=== PATIENT | male | born 1945 | race Caucasian/White ===

== ENCOUNTER 2021-01-16 17:04 | Outpatient (REF) | payer MEDICARE, SELFPAY ==
[2021-01-16 17:59] LABS: Glucose Urine UA NEG (NEG); Leukocyte Esterase Urine NEG (NEG); Nitrite Urine NEG (NEG); Specific Gravity - Urine >= 1.030 (1.005-1.025); Urine Blood NEG (NEG); Urine Ketones NEG (NEG); Urine Protein NEG (NEG-TRACE)
[2021-01-16 18:06] LABS: Hematocrit 49.1 % (42-52); Hemoglobin 16.5 g/dl (14.0-18.0); Mean Corpuscular HGB Conc 33.6 g/dl (31.0-36.0); Mean Corpuscular Hemoglobin 32.8 pg (27.0-33.0); Mean Corpuscular Volume 97.6 fL (80-98); Platelet Count 295 X10*3/uL (160-400); Red Blood Count 5.03 X10*6/uL (4.60-5.80); Red Cell Distribution Width 12.3 % (11.0-16.0); White Blood Count 6.8 X10*3/uL (4.8-10.8)
[2021-01-16 18:08] LABS: Appearance Urine CLEAR; Color Urine YELLOW
[2021-01-16 18:18] LABS: Alanine Aminotransferase 28 U/L (0-40); Albumin Level 4.1 g/dL (3.5-5.0); Alkaline Phosphatase 68 U/L (39-117); Anion Gap 10 (12-20); Aspartate Amino Transferase 20 U/L (5-37); Bilirubin Direct 0.2 mg/dL (0.0-0.5); Bilirubin Total 0.6 mg/dL (0.0-1.0); Blood Urea Nitrogen 18 mg/dL (9-16); Calcium 8.7 mg/dL (8.4-10.2); Carbon Dioxide 29 mmol/L (22-29); Chloride 106 mmol/L (96-108); Cholesterol 172 mg/dL; Estimated Glomerular Filt Rate > 60; Glucose Random 90 mg/dL (60-115); HDL Cholesterol 51 mg/dL; LDL Cholesterol Calculated 104 mg/dl; Potassium 4.2 mmol/L (3.3-5.1); Sodium 141 mmol/L (135-145); Total Protein 6.4 g/dL (6.5-8.0); Triglycerides 85 mg/dL
[2021-01-16 18:41] LABS: Thyroid Stimulating Hormone 1.62 uIU/mL (0.32-4.0)
== END 2021-01-16 17:05 | disposition home or self-care (01) ==
LOC: HO.LAB 17:04
PROVIDERS: PCP Internal Medicine; Visit Provider Internal Medicine
DX: I10 Essential (primary) hypertension (principal)
CPT/HCPCS: 36415; 80048; 80061; 80076; 81003; 84443; 85027

== ENCOUNTER 2021-08-07 14:42 | Outpatient (REF) | payer MEDICARE, SELFPAY ==
[2021-08-07 15:58] LABS: Alanine Aminotransferase 18 U/L (0-40); Albumin Level 4.2 g/dL (3.5-5.0); Alkaline Phosphatase 59 U/L (39-117); Anion Gap 13 (12-20); Aspartate Amino Transferase 21 U/L (5-37); Bilirubin Total 0.9 mg/dL (0.0-1.0); Blood Urea Nitrogen 12 mg/dL (9-16); Calcium 9.2 mg/dL (8.4-10.2); Carbon Dioxide 27 mmol/L (22-29); Chloride 108 mmol/L (96-108); Estimated Glomerular Filt Rate > 60; Glucose Fasting 86 mg/dL (60-99); Potassium 4.5 mmol/L (3.3-5.1); Sodium 143 mmol/L (135-145); Total Protein 6.6 g/dL (6.5-8.0)
== END 2021-08-07 14:43 | disposition home or self-care (01) ==
LOC: HO.LAB 14:42
PROVIDERS: PCP Internal Medicine; Visit Provider Nurse Practitioner Family
DX: Z13.1 Encounter for screening for diabetes mellitus (principal)
CPT/HCPCS: 36415; 80053

== ENCOUNTER 2021-09-27 15:21 | Outpatient (REF) | payer MEDICARE, SELFPAY ==
--- NOTE | ~2021-09-27 | XR_ITS ---
EXAMINATION: XR HAND, LEFT CLINICAL INFORMATION: Injury COMPARISON: None TECHNIQUE: Four views of the left hand. FINDINGS: As seen on the lateral radiograph, there is a mildly displaced intra-articular fracture of the volar proximal base of the middle phalanx, likely of the fifth digit. Mild narrowing of some of the interphalangeal joints. Carpal row alignment appears maintained. Mild ulnar negative variance. No abnormal soft tissue calcification. Normal bone mineralization. XR/XR hand LT min 3V IMPRESSION: Mildly displaced intra-articular fracture of the volar proximal base of the fifth middle phalanx. Please clinically correlate. Additional imaging, follow-up radiographs as clinically warranted. The report will be called to the ordering clinician by a [facility] Physician Metal Finisher.
== END 2021-09-27 15:22 | disposition home or self-care (01) ==
LOC: HO.XRAY 15:21
PROVIDERS: PCP Internal Medicine; Visit Provider Nurse Practitioner Acute Care
DX: S62.613A Displaced fracture of proximal phalanx of left middle finger, initial encounter for closed fracture (principal); X58.XXXA Exposure to other specified factors, initial encounter; Y93.9 Activity, unspecified; Y92.9 Unspecified place or not applicable; Y99.8 Other external cause status
CPT/HCPCS: 73130

== ENCOUNTER 2021-10-03 12:00 | Outpatient (REF) | payer MEDICARE, SELFPAY ==
--- NOTE | ~2021-10-03 | XR_ITS ---
EXAMINATION: XR HAND, LEFT CLINICAL INFORMATION: Left hand pain. COMPARISON: Left hand radiographs dated 09/27/2021. TECHNIQUE: PA view of the left hand as well as oblique and lateral views of the small finger. FINDINGS: Redemonstration of an oblique fracture through the ventral base of the 5th middle phalanx with a resultant fracture gap measuring up to 0.3 cm. Findings are in similar anatomic alignment when compared to the prior radiographs. Minimal new bone/callus formation. No acute fracture or dislocation. XR/XR hand LT min 3V IMPRESSION: Fracture at the ventral base of the 5th middle phalanx in unchanged anatomic alignment with minimal new bone/callus formation.
== END 2021-10-03 12:01 | disposition home or self-care (01) ==
LOC: HO.HOSX 12:00
PROVIDERS: Visit Provider Orthopaedic Surgery
DX: M79.642 Pain in left hand (principal); S62.627A Displaced fracture of middle phalanx of left little finger, initial encounter for closed fracture; W01.198A Fall on same level from slipping, tripping and stumbling with subsequent striking against other object, initial encounter; Y93.89 Activity, other specified; Y92.009 Unspecified place in unspecified non-institutional (private) residence as the place of occurrence of the external cause; Y99.8 Other external cause status; I10 Essential (primary) hypertension
CPT/HCPCS: 73130; 99202

== ENCOUNTER 2021-11-07 11:52 | Outpatient (REF) | payer MEDICARE, SELFPAY ==
--- NOTE | ~2021-11-07 | XR_ITS ---
EXAMINATION: XR HAND, LEFT CLINICAL INFORMATION: Follow up pain. COMPARISON: 09/27/2021 TECHNIQUE: PA, lateral, and oblique views of the left hand. FINDINGS: Once again fracture of the middle phalanx 5th digit at the level of the PIP joint is noted. No significant change in fracture fragment position. Fracture lines are still well visible. Otherwise there is no acute finding. No bony erosion or osteopenia. XR/XR hand LT min 3V IMPRESSION: Once again fracture felt to be present at the level of the PIP joint 5th digit. Fracture lines are still well visible. No significant increased migration of the fracture fragments.
== END 2021-11-07 11:53 | disposition home or self-care (01) ==
LOC: HO.HOSX 11:52
PROVIDERS: Visit Provider Orthopaedic Surgery
DX: S62.627D Displaced fracture of middle phalanx of left little finger, subsequent encounter for fracture with routine healing (principal)
CPT/HCPCS: 73130; 99212

== ENCOUNTER 2022-03-29 15:25 | Outpatient (REF) | payer MEDICARE, SELFPAY ==
[2022-03-29 16:03] LABS: Hematocrit 48.9 % (42.0-52.0); Hemoglobin 16.3 g/dl (14.0-18.0); Mean Corpuscular HGB Conc 33.3 g/dl (31.0-36.0); Mean Corpuscular Hemoglobin 32.6 pg (27.0-33.0); Mean Corpuscular Volume 97.8 fL (80.0-98.0); Mean Platelet Volume 10.4 fL (9.4-12.4); Platelet Count 306 X10*3/uL (160-400); Red Cell Distribution Width 12.4 % (11.0-16.0); White Blood Count 5.8 X10*3/uL (4.8-10.8)
[2022-03-29 16:34] LABS: Alanine Aminotransferase 17 U/L (0-40); Albumin Level 4.1 g/dL (3.5-5.0); Alkaline Phosphatase 78 U/L (39-117); Anion Gap 13 (12-20); Aspartate Amino Transferase 17 U/L (5-37); Bilirubin Direct 0.3 mg/dL (0.0-0.5); Bilirubin Total 0.7 mg/dL (0.0-1.0); Blood Urea Nitrogen 14 mg/dL (9-16); Calcium 8.9 mg/dL (8.4-10.2); Carbon Dioxide 24 mmol/L (22-29); Chloride 110 mmol/L (96-108); Cholesterol 171 mg/dL; Estimated Glomerular Filt Rate > 60; Glucose Random 93 mg/dL (60-115); HDL Cholesterol 48 mg/dL; LDL Cholesterol Calculated 103 mg/dl; Potassium 4.4 mmol/L (3.3-5.1); Sodium 143 mmol/L (135-145); Total Protein 6.5 g/dL (6.5-8.0); Triglycerides 103 mg/dL
[2022-03-29 16:55] LABS: Thyroid Stimulating Hormone 1.87 uIU/mL (0.32-4.0)
== END 2022-03-29 15:26 | disposition home or self-care (01) ==
LOC: HO.LAB 15:25
PROVIDERS: PCP Internal Medicine; Visit Provider Internal Medicine
DX: I10 Essential (primary) hypertension (principal)
CPT/HCPCS: 36415; 80048; 80061; 80076; 84443; 85027

== ENCOUNTER 2022-04-05 13:42 | Outpatient (REF) | payer MEDICARE, SELFPAY ==
[2022-04-05 14:52] LABS: Cholesterol 160 mg/dL; HDL Cholesterol 50 mg/dL; LDL Cholesterol Calculated 92 mg/dl; Triglycerides 92 mg/dL
== END 2022-04-05 13:43 | disposition home or self-care (01) ==
LOC: HO.LAB 13:42
PROVIDERS: Visit Provider Internal Medicine
DX: I10 Essential (primary) hypertension (principal)
CPT/HCPCS: 36415; 80061

== ENCOUNTER 2022-09-27 15:47 | Outpatient (REF) | payer MEDICARE, SELFPAY ==
[2022-09-27 17:28] LABS: Hematocrit 50.4 % (42.0-52.0); Hemoglobin 16.8 g/dl (14.0-18.0); Mean Corpuscular HGB Conc 33.3 g/dl (31.0-36.0); Mean Corpuscular Hemoglobin 32.3 pg (27.0-33.0); Mean Corpuscular Volume 96.9 fL (80.0-98.0); Mean Platelet Volume 9.7 fL (9.4-12.4); Platelet Count 298 X10*3/uL (160-400); Red Cell Distribution Width 11.9 % (11.0-16.0); White Blood Count 6.3 X10*3/uL (4.8-10.8)
[2022-09-27 17:42] LABS: Alanine Aminotransferase 18 U/L (0-40); Albumin Level 4.1 g/dL (3.5-5.0); Alkaline Phosphatase 68 U/L (39-117); Anion Gap 12 (12-20); Aspartate Amino Transferase 20 U/L (5-37); Bilirubin Direct 0.3 mg/dL (0.0-0.5); Bilirubin Total 0.9 mg/dL (0.0-1.0); Blood Urea Nitrogen 14 mg/dL (9-16); Calcium 9.2 mg/dL (8.4-10.2); Carbon Dioxide 26 mmol/L (22-29); Chloride 106 mmol/L (96-108); Cholesterol 170 mg/dL; Estimated Glomerular Filt Rate > 60; Glucose Random 94 mg/dL (60-115); HDL Cholesterol 50 mg/dL; LDL Cholesterol Calculated 102 mg/dl; Potassium 4.4 mmol/L (3.3-5.1); Sodium 140 mmol/L (135-145); Total Protein 6.4 g/dL (6.5-8.0); Triglycerides 92 mg/dL
[2022-09-27 18:04] LABS: Appearance Urine Clear; Color Urine Yellow; Glucose Urine UA Negative (Negative); Leukocyte Esterase Urine Trace (Negative); Nitrite Urine Negative (Negative); Urine Blood Negative (Negative); Urine Ketones Negative (Negative); Urine Protein Negative (Neg-Trace)
[2022-09-27 18:05] LABS: UMIC TRIGGER UA YES
[2022-09-27 18:10] LABS: Bacteria Urine None Seen (None Seen); Hyaline Casts Urine 0-2 /LPF (0-2); RBC Urine 0-2 /HPF (0-2); Squamous Epithelial Cell Urine 0-2 /HPF (0-2)
== END 2022-09-27 15:48 | disposition home or self-care (01) ==
LOC: HO.LAB 15:47
PROVIDERS: PCP Internal Medicine; Visit Provider Internal Medicine
DX: I10 Essential (primary) hypertension (principal)
CPT/HCPCS: 36415; 80048; 80061; 80076; 81001; 85027

== ENCOUNTER 2023-04-18 15:30 | Outpatient (REF) | payer MEDICARE, SELFPAY | END 2023-04-18 15:31 | disposition home or self-care (01) | LOC: HO.LAB 15:30 | PROVIDERS: PCP Internal Medicine; Visit Provider Internal Medicine | DX: I10 Essential (primary) hypertension (principal) | CPT/HCPCS: 36415; 80048; 80061; 80076; 81003; 84443; 85027 ==

== ENCOUNTER 2023-08-27 14:53 | Outpatient (AMB) | payer MEDICARE, SELFPAY ==
[2023-08-27 14:55] VITALS: BP 112/68; PULSE 78; O2SAT 99; BMI 31.8
--- NOTE | 2023-08-27 14:55 | A.OFFVIS_ITS ---
Intake Vital Signs 08/27/23 14:55 Height 5 ft 6 in Weight 197 lb 0.2 oz BMI 31.8 BP 112/68 Blood Pressure Location Lt brachial Position Sitting Pulse 78 Pulse Source Pulse Oximeter Pulse Oximetry (%) 99 Oxygen Delivery Method Room Air Intake Visit Reasons: [facility] G0439 Rubber Goods Inspector Tester Required: No Allergies No Known Allergies [No Known Allergies*] Allergy (Verified 08/27/23 15:15) Medication List - Last Reconciled 08/27/23 by CHIP Lord aspirin 81 mg PO DAILY metoprolol succinate ER 50 mg PO DAILY HPI SWV G0439 HPI Details Patient is a 77-year-old male who presents today for subsequent wellness visit. Patient of Dr. Restrepo. Patient is up-to-date with his health preventative screenings and immunizations. [place] of care was reviewed with the patient and he was provided with a screening schedule. Patient has a healthcare proxy in place and he will provide office with a copy, he was provided with a MOLST form. [facility] Medical History Fracture of middle phalanx of left little finger Proximal phalanx fracture of finger Fall Injury of left hand Benign essential HTN Surgical History History of colonoscopy History of tonsillectomy Family History Father No problems noted. Mother No problems noted. Social History Housing: House Alcohol intake: former Patient Tobacco Use Status: Never used Tobacco e-Cigarette/Vaping Use: Never Used Second Hand Smoke Exposure: No service: No Current occupational status: retired Cognitive needs: No Hearing needs: No Vision needs: Yes (Glasses) Questionnaire Medicare Wellness Checkup [age] What gender do you identify with?: male During the past 4 weeks, how much have you been bothered by emotional problems such as feeling anxious, depressed, irritable, sad or downhearted, and blue?: slightly During the past 4 weeks, has your physical & emotional health limited your social activities with family, friends, neighbors, or groups?: not at all During the past 4 weeks, how much bodily pain have you generally had?: very mild pain During the past 4 weeks, was someone available to help you if you needed & wanted help?: yes, some During the past 4 weeks, what was the hardest physical activity you could do for at least 2 minutes?: moderate Can you get to places out of walking distance without help? (For eg., can you travel alone on buses, taxis or drive your car?): Yes Can you go shopping for groceries or clothes without someone's help?: Yes Can you prepare your own meals?: Yes Can you do your housework without help?: Yes Because of any health problems, do you need the help of another person with your personal care needs such as eating, bathing, dressing or getting around the house?: No Can you handle your own money without help?: Yes During the past 4 weeks, how would you rate your health in general?: excellent During the past 4 weeks how have things been going for you?: pretty well Are you having difficulties driving your car?: no Do you always fasten your seat belt when you are in a car?: yes, usually During past 4 weeks, have you been bothered by the following: never: Falling or dizzy when standing up, Sexual problems?, Trouble eating well?, Teeth or denture problems?, Problems using the telephone? and Tiredness or fatigue? Have you fallen 2 or more times in the past year?: No Are you afraid of falling?: No Are you a smoker?: no During the past 4 weeks, how many drinks of wine, beer, or other alcoholic beverages did you have?: no alcohol at all Do you exercise for about 20 minutes 3 or more times a week?: yes, most of the time Have you been given information to help with the following?: no: Hazards in your house that might hurt you? and no: Keeping track of your medications? How often do you have trouble taking medicines the way you have been told to take them?: I always take medicine as prescribed How confident are you that you can control & manage most of your health problems?: very confident What is your race?: White Mini Mental State Exam (MMSE) Orientation What is the (year) (season) (date) (day) (month)?: year, season, date, day and month Score Score: 5 Activity of Daily Living Bathing - sponge bath, tub bath or shower: receives no assistance (gets in/out by self, if usual bathing means Dressing - getting clothes from closets & drawers, including inner/outer garments & fasteners.: gets clothes & gets completely dressed without help Toileting - going to the 'toilet room' for urine/bowel elimination & cleaning self/arranging clothes: goes to toilet room, cleans self, arranges clothes without help Transfer: moves in & out of bed and chair without help (may use support object) Continence: controls urination/bowel movements completely by self Feeding: feeds self without help Total Score: 0 Information obtained from: patient Using telephone: independent Traveling: independent Shopping: independent Preparing meals: independent Housework: independent Taking medicine: independent Managing money: independent PHQ-9 Over the last 2 weeks, how often have you been bothered by any of the following problems? 1. Little interest or pleasure in doing things: not at all 2. Feeling down, depressed, or hopeless: not at all 3. Trouble falling or staying asleep, or sleeping too much: not at all 4. Feeling tired or having little energy: not at all 5. Poor appetite or overeating: not at all 6. Feeling bad about yourself - or that you are a failure or have let yourself or your family down: not at all 7. Trouble concentrating on things, such as reading the newspaper or watching television: not at all 8. Moving or speaking so slowly that other people could have noticed. Or the opposite - being so fidgety or restless that you have been moving around a lot more than usual: not at all 9. Thoughts that you would be better off or of hurting yourself in some way: not at all Total score: 0 Depression Screening Interpretation: Negative Depression Screening Done: Yes 42257 - PHQ-9 Billing: Yes Source: Developed by Drs. Jay Molina, Jessa Rhodes, Pravin Mclain and colleagues, with an educational wing from [employer]. Physical Exam Vital Signs: Last Vital Signs Pulse 78 08/27/23 14:55 BP 112/68 08/27/23 14:55 Pulse Ox 99 08/27/23 14:55 Oxygen Delivery Method Room Air 08/27/23 14:55 BMI result Body Mass Index 31.8 Const General: cooperative and no acute distress Orientation/consciousness: patient oriented x3 HEENT Other: Whisper test: fail Neuro Other: Balance: Normal Get up and walk: able to Romberg: negative Tandem gait: unable to General: patient oriented x3 Office Procedures Flu Questionnaire Does the patient have a severe egg allergy?: No Does the patient have severe life threatening allergies?: No Does the patient have a fever or illness today?: No Has the patient ever had Guillain-[place] Syndrome?: No Has the patient ever had any past reaction to a flu shot?: No Immunizations flu vacc [id number] 6mos up(PF) 60 mcg(15 mcgx4)/0.5 mL IM syringe Performing Provider: CHIP Lord [facility] Administered by: CARLO Willson on 08/27/23 15:27 Dose Route Admin Location Dispensed Lot Number Expiration Date [facility] Secretary 0.5 mL IM Left Deltoid 0.5 mL [id number] 04/12/24 [id number] [employer] VIS Given Date VIS Provided VIS Publication Date 08/27/23 Single Vaccine 21 Eligibility Eligibility Date Funding Source Not [facility] Eligible 08/27/23 Private Assessment & Plan Assessment & Plan (1) Adult general medical exam: Code(s): Z00.00 - Encounter for general adult medical examination without abnormal findings (2) Benign essential HTN: Code(s): I10 - Essential (primary) hypertension Plan: Continue current treatment. Reinforced low-sodium diet and exercise as tolerated. (3) Obesity (BMI 30.0-34.9): Code(s): E66.9 - Obesity, unspecified Plan: Healthy food choices and exercise as tolerated. Orders: Orders Influenza [id number] Immunization Today Z23 - Encounter for immunization Quality Reporting (2019) Depression/Bipolar (159/160/161/177) PHQ-9: Total score: 0 Coding Level of Care Code Medicare Subsequent (G0439) Diagnoses Adult general medical exam Z00.00 Benign essential HTN I10 Obesity (BMI 30.0-34.9) E66.9 CPT Codes Advance Care Planning - Time spent: 1-15 minutes, not on file ([id number]) Advance Care Planning Advance Care Planning discussion: Exists, not on file Date of discussion: 08/27/23 Who was present: pt and head of advertising Forms completed: None Time spent: 1-15 minutes, not on file Actual minutes spent: 2 Did not discuss due to Cultural/Spiritual beliefs: No
== END 2023-08-27 15:30 | disposition home or self-care (01) ==
PROVIDERS: PCP Internal Medicine; Visit Provider Nurse Practitioner Family
DX: Z00.00 Encounter for general adult medical examination without abnormal findings (principal); I10 Essential (primary) hypertension; E66.9 Obesity, unspecified; Z23 Encounter for immunization; Z68.31 Body mass index [BMI] 31.0-31.9, adult
CPT/HCPCS: 1124F; 90471; 90686; G0439

== ENCOUNTER 2023-10-10 14:52 | Outpatient (AMB) | payer MEDICARE, SELFPAY ==
--- NOTE | 2023-10-10 14:56 | A.OFFPC_ITS ---
Vital Signs 10/10/23 14:59 Height 5 ft 6 in Weight 199 lb 4 oz BMI 32.2 BP 110/66 Blood Pressure Location Lt brachial Position Sitting Pulse 69 Pulse Source Pulse Oximeter Pulse Oximetry (%) 97 Oxygen Delivery Method Room Air Intake Visit Reasons: 6 Month F/Up Intake Note: Patient is here to follow up on HTN. Manager Medical Device Required: No Assistant Men'S Lacrosse Coach: Not Required per policy Accompanied by: Self / Same As Patient Allergies No Known Allergies [No Known Allergies*] Allergy (Verified 10/22/23 05:17) Medication List - Last Reconciled 10/22/23 by Jr Restrepo MD aspirin 81 mg PO DAILY metoprolol succinate ER 50 mg PO DAILY Tobacco use date assessed: 10/10/23 Fall risk assessment: No Falls in past year Last assessed Fall Risk: 10/10/23 Dental Screening Dental Screen Date: 10/10/23 Did you have a dental visit in the last 12 months?: Yes Did you have a dental problem in the last 6 months where you did not have access to dental care?: No Was dental information given to patient?: Patient has dentist HPI 6 Month F/Up HPI Details 78-year-old male presents to the office to discuss his chronic medical conditions. Patient continues to be active and able to do all activities of daily living. Continues to drive and travel. Compliant with medications. Reporting no side effects. [facility] Medical History Fracture of middle phalanx of left little finger Proximal phalanx fracture of finger Fall Injury of left hand Benign essential HTN Surgical History History of colonoscopy History of tonsillectomy Family History Father No problems noted. Mother No problems noted. Social History Housing: House Alcohol intake: former Patient Tobacco Use Status: Former Tobacco user (30 Years) Quit Date: 30 years e-Cigarette/Vaping Use: Never Used Second Hand Smoke Exposure: No service: No Current occupational status: retired Cognitive needs: No Hearing needs: No Vision needs: Yes (Glasses) Questionnaire Thrive Questionnaire Date Thrive assessed: 04/04/23 RUBEN-7 AMB Questionnaire RUBEN-7 Date RUBEN - 7 assessed: 04/04/23 Source: Developed by Drs. Jay Molina, Jessa Rhodes, Pravin Mclain and colleagues, with an educational wing from [employer]. Physical exam (Primary Care) Vital Signs: Last Vital Signs Pulse 69 10/10/23 14:59 BP 110/66 10/10/23 14:59 Pulse Ox 97 10/10/23 14:59 Oxygen Delivery Method Room Air 10/10/23 14:59 BMI result Body Mass Index 32.2 Tobacco/Smoking Status: Tobacco use Status Tobacco use date assessed 10/10/23 10/10/23 15:04 Patient Tobacco Use Status Former Tobacco user (30 10/10/23 15:04 Years) e-Cigarette/Vaping Use Never Used 10/10/23 15:04 Thrive Assessment: Date of Thrive Assessment Date Thrive assessed 04/04/23 10/10/23 15:04 Const General: cooperative and healthy appearing Nutritional Appearance: well nourished Orientation/consciousness: patient oriented x3 Limitations: no limitations HENMT Head: Yes normal to inspection Eyes General: appearance normal, both eyes and all related structures Neck Neck: Yes normal visual inspection Chest Chest palpation & inspection: normal palpation of entire chest wall Resp Effort & Inspection: normal respiratory effort Neuro General: patient oriented x3 Assessment and Plan Assessment & Plan (1) Benign essential HTN: Code(s): I10 - Essential (primary) hypertension Plan: Blood work reviewed. Counseling on the importance of diet and exercise done. Counseling time 20 minutes. Continue medications at same dosage. Medications: Refilled metoprolol succinate ER 50 mg PO DAILY 90 tabs 1RF Coding Level of Care Code Est Pt Level 4 (52568) Diagnoses Benign essential HTN I10
[2023-10-10 14:59] VITALS: BP 110/66; PULSE 69; O2SAT 97; BMI 32.2
== END 2023-10-10 15:31 | disposition home or self-care (01) ==
PROVIDERS: PCP Internal Medicine; Visit Provider Internal Medicine
DX: I10 Essential (primary) hypertension (principal)
CPT/HCPCS: 99214

== ENCOUNTER 2024-04-15 14:28 | Outpatient (AMB) | payer MEDICARE, SELFPAY ==
--- NOTE | 2024-04-15 14:33 | MHC.PC.OV ---
Vital Signs 04/15/24 14:35 Height 5 ft 6 in Weight 200 lb 4 oz BMI 32.3 BP 100/62 Blood Pressure Location Lt brachial Position Sitting Pulse 81 Pulse Source Pulse Oximeter Pulse Oximetry (%) 98 Oxygen Delivery Method Room Air Intake Visit Reasons: 6 month f/u Intake Note: Patient is here to follow up on HTN. Computer Forensic Specialist Required: No Dent Remover: Not Required per policy Accompanied by: Self / Same As Patient Allergies No Known Allergies [No Known Allergies*] Allergy (Verified 04/15/24 15:13) Medication List - Last Reconciled 04/15/24 by Jr Restrepo MD aspirin 81 mg PO DAILY metoprolol succinate ER 50 mg PO DAILY Tobacco use date assessed: 04/15/24 Fall risk assessment: No Falls in past year Last assessed Fall Risk: 04/15/24 Dental Screening Dental Screen Date: 04/15/24 Did you have a dental visit in the last 12 months?: Yes Did you have a dental problem in the last 6 months where you did not have access to dental care?: No Was dental information given to patient?: Patient has dentist HPI 6 month f/u HPI Details 78-year-old male presents to the office to discuss his chronic medical conditions. Patient is compliant with medications and reporting no side effects. Able to function and do all activities of daily living. Patient continues to drive, able to drive at night. He is independent and able to take care of his finances. Reports no symptoms of urinary incontinence or hesitancy. [facility] Medical History Fracture of middle phalanx of left little finger Proximal phalanx fracture of finger Fall Injury of left hand Benign essential HTN Surgical History History of colonoscopy History of tonsillectomy Family History Father No problems noted. Mother No problems noted. Social History Housing: House Alcohol intake: former Patient Tobacco Use Status: Former Tobacco user (30 Years) e-Cigarette/Vaping Use: Never Used Second Hand Smoke Exposure: No service: No Current occupational status: retired Cognitive needs: No Hearing needs: No Vision needs: Yes (Glasses) Questionnaire PHQ-9 Over the last 2 weeks, how often have you been bothered by any of the following problems? 1. Little interest or pleasure in doing things: not at all 2. Feeling down, depressed, or hopeless: not at all 3. Trouble falling or staying asleep, or sleeping too much: not at all 4. Feeling tired or having little energy: not at all 5. Poor appetite or overeating: not at all 6. Feeling bad about yourself - or that you are a failure or have let yourself or your family down: not at all 7. Trouble concentrating on things, such as reading the newspaper or watching television: not at all 8. Moving or speaking so slowly that other people could have noticed. Or the opposite - being so fidgety or restless that you have been moving around a lot more than usual: not at all 9. Thoughts that you would be better off or of hurting yourself in some way: not at all Total score: 0 Depression Screening Interpretation: Negative Depression Screening Done: Yes Source: Developed by Drs. Jay Molina, Jessa Rhodes, Pravin Mclain and colleagues, with an educational wing from [employer]. Thrive Questionnaire Date Thrive assessed: 04/15/24 I am a: Patient What is your living situation today?: I have a steady place to live Within the past 12 months, did the food you bought not last and you didn't have the money to get more?: Never true Within the past 12 months, did you worry whether your food would run out before you got money to buy more?: Never true Do you have trouble paying for medicines?: No Do you have trouble getting transportation to medical appointments?: No Do you have trouble paying your heating and electricity bill?: No Do you have trouble taking care of your child, family member or friend?: No Do you have trouble with day-to-day activities such as bathing, preparing meals, shopping, managing finances, etc.?: No Are you currently unemployed and looking for a job?: No Are you interested in more education?: No Currently or been in a relationship where the following occur: No concerns reported THRIVE Score: 0 AUDIT C Alcohol Use Questionnaire (AUDIT-C) 1. How often do you have a drink containing alcohol?: Never Total Score: 0 RUBEN-7 AMB Questionnaire RUBEN-7 Date RUBEN - 7 assessed: 04/15/24 Feeling nervous, anxious, or on edge: 0 = Not at all Not being able to stop or control worryin = Not at all Worrying too much about different things: 0 = Not at all Trouble relaxin = Not at all Being so restless that it is hard to sit still: 0 = Not at all Becoming easily annoyed or irritable: 0 = Not at all Feeling afraid as if something awful might happen: 0 = Not at all Total RUBEN-7 score (0-4 normal; 5-9 mild; 10-14 moderate; 15-21 severe): 0 Source: Developed by Drs. Jay Molina, Jessa Rhodes, Pravin Mclain and colleagues, with an educational wing from [employer]. Physical exam (Primary Care) Vital Signs: Last Vital Signs Pulse 81 04/15/24 14:35 BP 100/62 04/15/24 14:35 Pulse Ox 98 04/15/24 14:35 Oxygen Delivery Method Room Air 04/15/24 14:35 BMI result Body Mass Index 32.3 BMI Assessment/Plan discussion: High BMI High, discussed plan: lifestyle, weight reduction and dietary Tobacco/Smoking Status: Tobacco use Status Tobacco use date assessed 04/15/24 04/15/24 14:39 Patient Tobacco Use Status Former Tobacco user (30 04/15/24 14:39 Years) e-Cigarette/Vaping Use Never Used 04/15/24 14:39 PHQ-9: PHQ-9 Score PHQ-9: Total score 0 04/15/24 14:39 Depression Screening Interpretation: Negative Thrive Assessment: Date of Thrive Assessment Date Thrive assessed 04/15/24 04/15/24 14:39 Currently or been in a relationship where the following occur: No concerns reported Const General: cooperative and healthy appearing Nutritional Appearance: well nourished Orientation/consciousness: patient oriented x3 Limitations: no limitations HENMT Head: Yes normal to inspection Eyes General: appearance normal, both eyes and all related structures Neck Neck: Yes normal visual inspection Chest Chest palpation & inspection: normal palpation of entire chest wall Resp Effort & Inspection: normal respiratory effort Neuro General: patient oriented x3 Assessment and Plan Assessment & Plan (1) Benign essential HTN: Code(s): I10 - Essential (primary) hypertension Plan: Blood pressure is in range. Continue medications at same dosage. Orders: Orders Basic Metabolic Panel Today I10 - Essential (primary) hypertension Complete Blood Count no Diff Today I10 - Essential (primary) hypertension Lipid Panel Today I10 - Essential (primary) hypertension Liver Panel Today I10 - Essential (primary) hypertension Thyroid Stimulating Hormone Today I10 - Essential (primary) hypertension UA and rflx microscopic Today I10 - Essential (primary) hypertension Coding Level of Care Code Est Pt Level 4 (65790) Complex EM visit Add On G2211 Diagnoses Benign essential HTN I10
[2024-04-15 14:35] VITALS: BP 100/62; PULSE 81; O2SAT 98; BMI 32.3
== END 2024-04-15 15:09 | disposition home or self-care (01) ==
PROVIDERS: PCP Internal Medicine; Visit Provider Internal Medicine
DX: I10 Essential (primary) hypertension (principal)
CPT/HCPCS: 99214; G2211

== ENCOUNTER 2024-04-27 15:32 | Outpatient (REF) | payer MEDICARE, SELFPAY ==
[2024-04-27 16:31] LABS: Hematocrit 49.6 % (42.0-52.0); Hemoglobin 16.7 g/dl (14.0-18.0); Mean Corpuscular HGB Conc 33.7 g/dl (31.0-36.0); Mean Platelet Volume 10.1 fL (9.4-12.4); Platelet Count 289 X10*3/uL (160-400); Red Blood Count 5.06 X10*6/uL (4.60-5.80); Red Cell Distribution Width 12.4 % (11.0-16.0); White Blood Count 6.5 X10*3/uL (4.8-10.8)
[2024-04-27 16:41] LABS: Appearance Urine Cloudy; Color Urine Dark Yellow; Glucose Urine UA Negative (Negative); Leukocyte Esterase Urine Trace (Negative); Nitrite Urine Negative (Negative); Specific Gravity - Urine 1.025 (1.005-1.025); UMIC TRIGGER UA YES; Urine Blood Negative (Negative); Urine Ketones Trace mg/dL (Negative); Urine Protein Negative (Neg-Trace)
[2024-04-27 16:51] LABS: Bacteria Urine None Seen (None Seen); Hyaline Casts Urine 0-2 /LPF (0-2); RBC Urine 0-2 /HPF (0-2); Squamous Epithelial Cell Urine 0-2 /HPF (0-2); WBC Urine 0-5 /HPF (0-5)
[2024-04-27 17:23] LABS: Alanine Aminotransferase 20 U/L (0-40); Albumin Level 4.2 g/dL (3.5-5.0); Alkaline Phosphatase 60 U/L (39-117); Anion Gap 14 (12-20); Aspartate Amino Transferase 23 U/L (5-37); Bilirubin Direct 0.3 mg/dL (0.0-0.5); Blood Urea Nitrogen 14 mg/dL (9-16); Calcium 9.2 mg/dL (8.4-10.2); Carbon Dioxide 23 mmol/L (22-29); Chloride 112 mmol/L (96-108); Cholesterol 164 mg/dL (<200); Estimated Glomerular Filt Rate > 60; Glucose Random 94 mg/dL (60-115); HDL Cholesterol 51 mg/dL (>40); LDL Cholesterol Calculated 94 mg/dL (<100); Potassium 3.8 mmol/L (3.3-5.1); Sodium 145 mmol/L (135-145); Total Protein 6.7 g/dL (6.5-8.0); Triglycerides 97 mg/dL (<150)
[2024-04-27 17:39] LABS: Thyroid Stimulating Hormone 1.73 uIU/mL (0.32-4.0)
== END 2024-04-27 15:33 | disposition home or self-care (01) ==
LOC: HO.LAB 15:32
PROVIDERS: PCP Internal Medicine; Visit Provider Internal Medicine
DX: I10 Essential (primary) hypertension (principal)
CPT/HCPCS: 36415; 80048; 80061; 80076; 81001; 84443; 85027

== ENCOUNTER 2024-09-30 14:39 | Outpatient (AMB) | payer MEDICARE, SELFPAY ==
[2024-09-30 14:53] VITALS: BP 112/70; PULSE 76; O2SAT 99; BMI 28.1
--- NOTE | 2024-09-30 14:53 | A.OFFPC_ITS ---
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 Manager Required: No Accompanied by: Self / Same As Patient Allergies No Known Allergies [No Known Allergies*] Allergy (Verified 09/30/24 14:55) Tobacco use date assessed: 04/15/24 Fall risk assessment: No Falls in past year Last assessed Fall Risk: 09/30/24 Dental Screening Dental Screen Date: 09/30/24 Did you have a dental visit in the last 12 months?: Yes Did you have a dental problem in the last 6 months where you did not have access to dental care?: No Was dental information given to patient?: Patient has dentist [facility] Medical History Fracture of middle phalanx of left little finger Proximal phalanx fracture of finger Fall Injury of left hand Benign essential HTN Surgical History History of colonoscopy History of tonsillectomy Family History Father No problems noted. Mother No problems noted. Social History Housing: House Alcohol intake: former Patient Tobacco Use Status: Former Tobacco user (30 Years) e-Cigarette/Vaping Use: Never Used Second Hand Smoke Exposure: No service: No Current occupational status: retired Cognitive needs: No Hearing needs: No Vision needs: Yes (Glasses) Questionnaire Thrive Questionnaire Date Thrive assessed: 04/15/24 AUDIT C Alcohol Use Questionnaire (AUDIT-C) 3. How often do you have six or more drinks on one occasion?: Never Total Score: 0 RUBEN-7 AMB Questionnaire RUBEN-7 Date RUBEN - 7 assessed: 04/15/24 Source: Developed by Drs. Jay Molina, Jessa Rhodes, Pravin Mclain and colleagues, with an educational wing from [employer]. Physical exam (Primary Care) Vital Signs: Last Vital Signs Pulse 76 09/30/24 14:53 BP 112/70 09/30/24 14:53 Pulse Ox 99 09/30/24 14:53 Oxygen Delivery Method Room Air 09/30/24 14:53 BMI result Body Mass Index 28.1 Tobacco/Smoking Status: Tobacco use Status Tobacco use date assessed 04/15/24 09/30/24 14:58 Patient Tobacco Use Status Former Tobacco user (30 09/30/24 14:58 Years) e-Cigarette/Vaping Use Never Used 09/30/24 14:58 Thrive Assessment: Date of Thrive Assessment Date Thrive assessed 04/15/24 09/30/24 14:58 Coding Level of Care Code Est Pt Level 4 (15062) Complex EM visit Add On G2211 Diagnoses Benign essential HTN I10 Assessment & Plan Assessment & Plan (1) Benign essential HTN: Code(s): I10 - Essential (primary) hypertension Category: Medical Plan: BP is in range. Continue current medications. Plan History of Present Illness The patient is an 79-year-old male presenting to discuss his chronic medical conditions and an evaluation of a rash. The rash is located on the right buttock and has been noted for several months. The patient reports no associated pain or discomfort with the rash, and it has not been a significant concern. He sought evaluation to ensure it is not a serious condition. Additionally, the patient experiences mild urinary incontinence characterized by an initial leak, without sustained urinary flow. There are no reports of significant symptoms impacting daily activities. The patient has a history of normal blood pressure and results from blood work conducted in the summer were reportedly baseline and fine. No medical intervention or significant changes in these areas have been needed to date. Social History - Engages in routine activities such as reading and watching sports. - Manages finances independently. - Maintains cognitive activities through reading about complex topics. - Functional status is intact with the ability to drive, including at night. Review of Systems - Genitourinary: Reports mild initial urine leakage. - Constitutional: Denies feeling unsteady on feet upon waking. Physical Exam General: Cooperative and healthy appearing Nutritional Appearance: Well nourished Orientation/consciousness: Patient oriented x3 Limitations: No limitations Head: Normal to inspection General: Appearance normal, both eyes and all related structures Neck: Normal visual inspection Chest: Normal palpation of entire chest wall Respiratory: Normal respiratory effort Neurology: Patient oriented x3 Skin: Right buttock, along the intergluteal cleft, thickening of the skin with overlying roughness. Results Plan - Monitor the rash for any changes or development of symptoms. - Evaluate urinary incontinence; continue monitoring symptoms. - Proceed with routine blood work as per bi-annual schedule to monitor overall health. - Administer the flu vaccination today as discussed. Patient was informed and verbally consented to the use of an ambient scribe for clinic note documentation during this visit. Discussion Notes I discussed with the patient the findings of the examination of the rash, confirming that it is not a concerning issue at this time. Reassurance was given that it appears routine due to aging. We have agreed to proceed with routine blood work to maintain overall health monitoring, as the last labs completed in April were normal. The patient consented to a flu vaccination, which will be administered today. The need to complete the paperwork for the healthcare proxy was reiterated. I addressed urinary incontinence by advising monitoring and mentioned it commonly occurs with aging but warrants attention if worsening. Patient Instructions - Monitor the rash for any changes; seek attention if new symptoms appear. - Attend the lab for ordered blood work. - Receive a flu shot today. - Complete healthcare proxy paperwork. - Follow up in six months or sooner if issues arise. Orders: Orders Influenza [id number] Immunization Today Z23 - Encounter for immunization Medications: New Fluarix Triv [id number] (PF) (flu vacc [id number] 6mos up(PF)) 0.5 mL IM ONCE 0.5 mL 0RF NS Z23 - Encounter for immunization
== END 2024-09-30 15:43 | disposition home or self-care (01) ==
PROVIDERS: PCP Internal Medicine; Visit Provider Internal Medicine
DX: I10 Essential (primary) hypertension (principal); Z23 Encounter for immunization

== ENCOUNTER → 2024-09-30 14:39 | Outpatient (BNVA) | payer MEDICARE, SELFPAY | PROVIDERS: PCP Internal Medicine; Visit Provider Internal Medicine | DX: Z23 Encounter for immunization (principal); I10 Essential (primary) hypertension | CPT/HCPCS: 90471; 90656; 99212 ==

== ENCOUNTER 2025-04-01 14:58 | Outpatient (AMB) | payer MEDICARE, SELFPAY ==
--- NOTE | 2025-04-01 15:02 | MHC.PC.OV ---
Vital Signs 04/01/25 15:03 Height 5 ft 6 in Weight 187 lb 2 oz BMI 30.2 BP 140/60 H Blood Pressure Location Lt brachial Position Sitting Pulse 81 Pulse Source Pulse Oximeter Temp 97.3 F Temp Source Temporal Artery Scan Pulse Oximetry (%) 97 Oxygen Delivery Method Room Air Intake Visit Reasons: f/u DMII Intake Note: Patient is here to follow up on HTN Dress Marker Required: No Healthcare Administration Internship: Not Required per policy Accompanied by: Self / Same As Patient Allergies No Known Allergies (No Known Allergies*) Allergy (Verified 04/01/25 15:03) Tobacco use date assessed: 04/01/25 Fall risk assessment: No Falls in past year Last assessed Fall Risk: 04/01/25 Dental Screening Dental Screen Date: 04/01/25 Did you have a dental visit in the last 12 months?: Yes Did you have a dental problem in the last 6 months where you did not have access to dental care?: No Was dental information given to patient?: Patient has dentist [facility] Medical History Fracture of middle phalanx of left little finger Proximal phalanx fracture of finger Fall Injury of left hand Benign essential HTN Surgical History History of colonoscopy History of tonsillectomy Family History Father No problems noted. Mother No problems noted. Social History Housing: House Alcohol intake: former Patient Tobacco Use Status: Former Tobacco user (30 Years) e-Cigarette/Vaping Use: Never Used Second Hand Smoke Exposure: Yes service: No Current occupational status: retired Cognitive needs: No Hearing needs: No Vision needs: Yes (Glasses) Questionnaire PHQ-9 Over the last 2 weeks, how often have you been bothered by any of the following problems? 1. Little interest or pleasure in doing things: not at all 2. Feeling down, depressed, or hopeless: not at all 3. Trouble falling or staying asleep, or sleeping too much: not at all 4. Feeling tired or having little energy: not at all 5. Poor appetite or overeating: not at all 6. Feeling bad about yourself - or that you are a failure or have let yourself or your family down: not at all 7. Trouble concentrating on things, such as reading the newspaper or watching television: not at all 8. Moving or speaking so slowly that other people could have noticed. Or the opposite - being so fidgety or restless that you have been moving around a lot more than usual: not at all 9. Thoughts that you would be better off or of hurting yourself in some way: not at all Total score: 0 Depression Screening Interpretation: Negative Depression Screening Done: Yes Source: Developed by Drs. Jay Molina, Jessa Rhodes, Pravin Mclain and colleagues, with an educational wing from [employer]. Thrive Questionnaire Date Thrive assessed: 03/29/25 I am a: Patient What is your living situation today?: I have a steady place to live Within the past 12 months, did the food you bought not last and you didn't have the money to get more?: Never true Within the past 12 months, did you worry whether your food would run out before you got money to buy more?: Never true Do you have trouble paying for medicines?: No Do you have trouble getting transportation to medical appointments?: No Do you have trouble paying your heating and electricity bill?: No Do you have trouble taking care of your child, family member or friend?: No Do you have trouble with day-to-day activities such as bathing, preparing meals, shopping, managing finances, etc.?: No Are you currently unemployed and looking for a job?: No Are you interested in more education?: No Please select the resources that you would like help with: None Currently or been in a relationship where the following occur: No concerns reported THRIVE Score: 0 AUDIT C Alcohol Use Questionnaire (AUDIT-C) 1. How often do you have a drink containing alcohol?: Never Total Score: 0 RUBEN-7 AMB Questionnaire RUBEN-7 Date RUBEN - 7 assessed: 04/01/25 Feeling nervous, anxious, or on edge: 0 = Not at all Not being able to stop or control worryin = Not at all Worrying too much about different things: 0 = Not at all Trouble relaxin = Not at all Being so restless that it is hard to sit still: 0 = Not at all Becoming easily annoyed or irritable: 0 = Not at all Feeling afraid as if something awful might happen: 0 = Not at all Total RUBEN-7 score (0-4 normal; 5-9 mild; 10-14 moderate; 15-21 severe): 0 Source: Developed by Drs. Jay Molina, Jessa Rhodes, Pravin Mclain and colleagues, with an educational wing from [employer]. Physical exam (Primary Care) Vital Signs: Last Vital Signs Temp 97.3 F 04/01/25 15:03 Pulse 81 04/01/25 15:03 BP 140/60 H 04/01/25 15:03 Pulse Ox 97 04/01/25 15:03 Oxygen Delivery Method Room Air 04/01/25 15:03 BMI result Body Mass Index 30.2 Tobacco/Smoking Status: Tobacco use Status Tobacco use date assessed 04/01/25 04/01/25 15:07 Patient Tobacco Use Status Former Tobacco user (30 04/01/25 15:07 Years) e-Cigarette/Vaping Use Never Used 04/01/25 15:07 PHQ-9: PHQ-9 Score PHQ-9: Total score 0 04/01/25 15:07 Depression Screening Interpretation: Negative Thrive Assessment: Date of Thrive Assessment Date Thrive assessed 03/29/25 04/01/25 15:07 Currently or been in a relationship where the following occur: No concerns reported Advance Care Planning discussion: Exists, not on file Date of discussion: 04/01/25 Who was present: Patient Forms completed: Health Care Proxy and MOLST Time spent: 1-15 minutes, not on file Coding Level of Care Code Est Pt Level 4 (22315) Complex EM visit Add On G2211 Diagnoses Benign essential HTN I10 Additional Codes Vital Signs *Quality* - Advance Care Planning discussion: Exists, not on file ([id number]) Vital Signs *Quality* - Time spent: 1-15 minutes, not on file ([id number]) Assessment & Plan Assessment & Plan (1) Benign essential HTN: Code(s): I10 - Essential (primary) hypertension Category: Medical Plan: History of Present Illness - The patient is an 79-year-old male presenting for routine follow-up and preventative care. - Reports a resolved issue of pain upon pressing on the back, possibly due to calcium deposits around the tendon. - Adheres to metoprolol regimen and maintains an active lifestyle with a good diet. - Has not completed healthcare proxy and living will documentation. - Plans to complete previously ordered blood and urine tests. Social History - Exercise: Walks three miles daily. - Nutrition: Reports a good diet. Review of Systems - General: Denies any current pain or discomfort. - Musculoskeletal: Reports past pain upon pressing on the back, now resolved. Physical Exam General: Cooperative and healthy appearing Nutritional Appearance: Well nourished Orientation/consciousness: Patient oriented x3 Limitations: No limitations Head: Normal to inspection General: Appearance normal, both eyes and all related structures Neck: Normal visual inspection Chest: Normal palpation of entire chest wall Respiratory: N ormal respiratory effort Neurology: Patient oriented x3, Balance good Results Plan 1. Calcium Deposits Around The Tendon - Plan to monitor the condition as it has resolved without intervention. 2. Preventative Care: Blood And Urine Tests - Orders placed for blood and urine tests to be completed. Discussion Notes I discussed with the patient the importance of completing the blood and urine tests for preventative care. We also talked about the resolved back pain, likely due to calcium deposits, and agreed to monitor it without intervention. I encouraged the patient to complete his healthcare proxy and living will documentation. Patient Instructions - Complete the blood and urine tests as soon as possible. - Continue taking metoprolol as prescribed. - Maintain current exercise and diet regimen. - Complete healthcare proxy and living will documentation. Orders: Orders Basic Metabolic Panel Today I10 - Essential (primary) hypertension Liver Panel Today I10 - Essential (primary) hypertension Thyroid Stimulating Hormone Today I10 - Essential (primary) hypertension UA and rflx microscopic Today I10 - Essential (primary) hypertension Complete Blood Count no Diff Today I10 - Essential (primary) hypertension Medications: Refilled metoprolol succinate ER 50 mg PO DAILY 90 tabs 1RF
[2025-04-01 15:03] VITALS: BP 140/60; PULSE 81; TEMP 36.3; O2SAT 97; BMI 30.2
== END 2025-04-01 15:39 | disposition home or self-care (01) ==
PROVIDERS: PCP Internal Medicine; Visit Provider Internal Medicine
DX: I10 Essential (primary) hypertension (principal); Z00.00 Encounter for general adult medical examination without abnormal findings

== ENCOUNTER 2025-04-01 14:58 | Outpatient (REF) | payer MEDICARE, SELFPAY ==
[2025-04-01 16:32] LABS: Appearance Urine Clear; Color Urine Yellow; Glucose Urine UA Negative (Negative); Leukocyte Esterase Urine Negative (Negative); Nitrite Urine Negative (Negative); PH 5.5 (5.0-9.0); Specific Gravity - Urine 1.015 (1.005-1.025); Urine Blood Negative (Negative); Urine Ketones Negative (Negative); Urine Protein Negative (Neg-Trace)
[2025-04-01 16:40] LABS: Hematocrit 44.9 % (42.0-52.0); Hemoglobin 15.1 g/dl (14.0-18.0); Mean Corpuscular HGB Conc 33.6 g/dl (31.0-36.0); Mean Corpuscular Hemoglobin 32.8 pg (27.0-33.0); Mean Corpuscular Volume 97.6 fL (80.0-98.0); Mean Platelet Volume 9.5 fL (9.4-12.4); Platelet Count 278 X10*3/uL (160-400); Red Cell Distribution Width 12.1 % (11.0-16.0); White Blood Count 5.1 X10*3/uL (4.8-10.8)
[2025-04-01 17:05] LABS: Alanine Aminotransferase 26 U/L (0-40); Alkaline Phosphatase 66 U/L (39-117); Anion Gap 12 (12-20); Aspartate Amino Transferase 37 U/L (5-37); Bilirubin Direct 0.2 mg/dL (0.0-0.5); Bilirubin Total 0.6 mg/dL (0.0-1.0); Blood Urea Nitrogen 8 mg/dL (9-16); Calcium 8.8 mg/dL (8.4-10.2); Carbon Dioxide 26 mmol/L (22-29); Chloride 109 mmol/L (96-108); Estimated Glomerular Filt Rate > 60; Glucose Random 87 mg/dL (60-115); Potassium 4.3 mmol/L (3.3-5.1); Sodium 143 mmol/L (135-145)
[2025-04-01 17:22] LABS: Thyroid Stimulating Hormone 2.15 uIU/mL (0.32-4.0)
== END 2025-04-01 14:59 | disposition home or self-care (01) ==
LOC: HO.LAB 14:58
PROVIDERS: PCP Internal Medicine; Visit Provider Internal Medicine
DX: I10 Essential (primary) hypertension (principal)
CPT/HCPCS: 36415; 80048; 80076; 81003; 84443; 85027; 96127; 99212

== ENCOUNTER 2025-09-30 15:19 | Outpatient (AMB) | payer MEDICARE, SELFPAY ==
--- NOTE | 2025-09-30 15:31 | A.OFFPC_ITS ---
Vital Signs 09/30/25 15:33 09/30/25 16:02 Height 5 ft 6 in Weight 176 lb 8 oz BMI 28.5 BP 150/64 H 130/80 Blood Pressure Location Lt brachial Lt brachial Position Sitting Pulse 72 Pulse Source Pulse Oximeter Pulse Oximetry (%) 97 Oxygen Delivery Method Room Air Intake Visit Reasons: 6 month f/u Intake Note: Patient is here to follow up on HTN. Trimming Cutter Machine Required: No Hat Brusher Machine: Not Required per policy Accompanied by: Self / Same As Patient Allergies No Known Allergies (No Known Allergies*) Allergy (Verified 10/01/25 13:26) Medication List - Last Reconciled 10/01/25 by Jr Restrepo MD aspirin 81 mg PO DAILY metoprolol succinate ER 50 mg PO DAILY Tobacco use date assessed: 09/30/25 Fall risk assessment: 1 Fall in past year Last assessed Fall Risk: 09/30/25 Dental Screening Dental Screen Date: 04/01/25 HPI HPI Comments History of Present Illness Details History of Present Illness - The patient is an 80-year-old male pre senting for a six-month follow-up. - He reports occasional, non-significant anxiety. - His past issue of back pain, noted at his last visit in March, has resolved. - The patient's current medications incl ude aspirin and metoprolol, both taken once daily. - His blood pressure was reported as sli ghtly high by a nurse at 150/64 mmHg, bu t a recheck during the visit showed a reading of 130/80 mmHg. - He reports blurry vision without halos and is able to drive during the day and at night. - He also notes occasional minor urinary leakage if there is a delay in getting to the restroom. - The patient had blood work done in Mar, which was normal. - He reports having had flu-like symptom s, including a sore throat, about a month ago but has not yet received this season's influenza vaccine. 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 - Marital Status: He has never been alma ied. - Children: He has no children. - Living Situation: He lives alone and r eports his home is safe. - Functional Status: The patient is inde pendent with his activities of daily living; he drives, goes grocery shopping, and cooks for himself. - Exercise: He walks three miles daily, weather permitting. Results - Blood work from March was reviewed and noted to be normal. [facility] Medical History Fracture of middle phalanx of left little finger Proximal phalanx fracture of finger Fall Injury of left hand Benign essential HTN Surgical History History of colonoscopy (~06/25/17) History of tonsillectomy Family History Father No problems noted. Mother No problems noted. Social History Housing: House Alcohol intake: former Patient Tobacco Use Status: Former Tobacco user (30 Years) e-Cigarette/Vaping Use: Never Used Second Hand Smoke Exposure: Yes service: No Current occupational status: retired Cognitive needs: No Hearing needs: No Vision needs: Yes (Glasses) Questionnaire PHQ-9 Over the last 2 weeks, how often have you been bothered by any of the following problems? 1. Little interest or pleasure in doing things: not at all 2. Feeling down, depressed, or hopeless: not at all 3. Trouble falling or staying asleep, or sleeping too much: not at all 4. Feeling tired or having little energy: not at all 5. Poor appetite or overeating: not at all 6. Feeling bad about yourself - or that you are a failure or have let yourself or your family down: not at all 7. Trouble concentrating on things, such as reading the newspaper or watching television: not at all 8. Moving or speaking so slowly that other people could have noticed. Or the opposite - being so fidgety or restless that you have been moving around a lot more than usual: not at all 9. Thoughts that you would be better off or of hurting yourself in some way: not at all Total score: 0 Depression Screening Interpretation: Negative Depression Screening Done: Yes Source: Developed by Drs. Jay Molina, Jessa Rhodes, Pravin Mclain and colleagues, with an educational wing from [employer]. Thrive Questionnaire Date Thrive assessed: 03/29/25 I am a: Patient What is your living situation today?: I have a steady place to live Within the past 12 months, did the food you bought not last and you didn't have the money to get more?: Never true Within the past 12 months, did you worry whether your food would run out before you got money to buy more?: Never true Do you have trouble paying for medicines?: No Do you have trouble getting transportation to medical appointments?: No Do you have trouble paying your heating and electricity bill?: No Do you have trouble taking care of your child, family member or friend?: No Do you have trouble with day-to-day activities such as bathing, preparing meals, shopping, managing finances, etc.?: No Are you currently unemployed and looking for a job?: No Are you interested in more education?: No Please select the resources that you would like help with: None Currently or been in a relationship where the following occur: No concerns reported THRIVE Score: 0 AUDIT C Alcohol Use Questionnaire (AUDIT-C) 1. How often do you have a drink containing alcohol?: Never Total Score: 0 RUBEN-7 AMB Questionnaire RUBEN-7 Date RUBEN - 7 assessed: 04/01/25 Source: Developed by Drs. Jay Molina, Jessa Rhodes, Pravin Mclain and colleagues, with an educational wing from [employer]. Review of Systems Narrative Review of Systems - General: Reports sleeping well. - Psychiatric: Reports occasional, non-significant anxiety. - Eyes: Reports blurry vision. - Denies halos around lights. - Ears, Nose, Throat: Reports good hearing and had a sore throat about a month ago. - Genitourinary: Reports normal urination but also notes occasional urinary leakage with urgency. - Musculoskeletal: Denies back pain. Physical exam (Primary Care) Vital Signs: Last Vital Signs Pulse 72 09/30/25 15:33 BP 130/80 09/30/25 16:02 Pulse Ox 97 09/30/25 15:33 Oxygen Delivery Method Room Air 09/30/25 15:33 BMI result Body Mass Index 28.5 Tobacco/Smoking Status: Tobacco use Status Tobacco use date assessed 09/30/25 09/30/25 15:33 Patient Tobacco Use Status Former Tobacco user (30 09/30/25 15:33 Years) e-Cigarette/Vaping Use Never Used 09/30/25 15:33 PHQ-9: PHQ-9 Score PHQ-9: Total score 0 10/01/25 13:22 Depression Screening Interpretation: Negative Thrive Assessment: Date of Thrive Assessment Date Thrive assessed 03/29/25 09/30/25 15:33 Currently or been in a relationship where the following occur: No concerns reported Narrative Physical Exam General: Cooperative and healthy appearing Nutritional Appearance: Well nourished Orientation/consciousness: Patient oriented x3 Limitations: No limitations Head: Normal to inspection General: Appearance normal, both eyes and all related structures Neck: Normal visual inspection Chest: Normal palpation of entire chest wall Respiratory: Normal respiratory effort Neurology: Patient oriented x3 Office Procedures Flu Questionnaire Does the patient have a severe egg allergy?: No Does the patient have severe life threatening allergies?: No Does the patient have a fever or illness today?: No Has the patient ever had Guillain-[place] Syndrome?: No Has the patient ever had any past reaction to a flu shot?: No Immunizations Fluarix [id number] (PF) 45 mcg (15 mcg x 3)/0.5 mL IM syringe Performing Provider: Jr Restrepo MD [facility] Administered by: Lacy Mendoza LPN on 09/30/25 16:20 Dose Route Admin Location Dispensed Lot Number Expiration Date NDC Actuary Clerk 0.5 mL IM Left Deltoid 0.5 mL [id number] 04/12/26 [id number] [employer] VIS Given Date VIS Provided VIS Publication Date 09/30/25 Single Vaccine 24 Eligibility Eligibility Date Funding Source Not [facility] Eligible 09/30/25 Private Coding Level of Care Code Est Pt Level 4 (55330) Add On Problem Visit Only Diagnoses Benign essential HTN I10 Assessment & Plan Assessment & Plan (1) Benign essential HTN: Code(s): I10 - Essential (primary) hypertension Category: Medical Plan Plan - Hypertension: The patient will continue his current dose of metoprolol. - He was advised to obtain a blood pressure cuff to monitor his readings at home and to report any high values. 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 - Health Maintenance: The patient will receive an influenza vaccine today. - An order for new fasting blood work will be placed. - Follow-up: The patient will return to the clinic in six months. Discussion Notes I saw the patient for his six-month follow-up visit. We reviewed his medications, including aspirin and metoprolol, which he takes daily. I noted the nurse's initial blood pressure reading was 150/64 mmHg, but my recheck showed 130/80 mmHg, which I find reassuring. I advised him to monitor his blood pressure at home with a cuff from the pharmacy and to contact me if he notices high readings. We discussed that he has not yet had his flu shot for the season, and I will administer it today. I am ordering new fasting blood work for him to complete wi thin the next few days. 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 I have scheduled him for a follow-up appointment in six months. Patient Instructions - You will receive your flu shot today in the office. - Please go for new blood tests within the next few days. - You will need to fast, so do not eat or drink anything except water after midn ight the night before your test. - You can buy a blood pressure cuff at a pharmacy to check your blood pressure at home. - Please let the clinic know if you see high readings. - Continue taking your aspirin and metoprolol as prescribed. - Please make an appointment to see your eye doctor for your blurry vision. - Please return for a follow-up visit in six months. Orders: Orders Complete Blood Count no Diff 09/30/25 I10 - Essential (primary) hypertension Liver Panel 09/30/25 I10 - Essential (primary) hypertension Basic Metabolic Panel 09/30/25 I10 - Essential (primary) hypertension Lipid Panel 09/30/25 I10 - Essential (primary) hypertension Thyroid Stimulating Hormone 09/30/25 I10 - Essential (primary) hypertension UA and rflx microscopic 09/30/25 I10 - Essential (primary) hypertension Prostate Specific Antigen Scr 09/30/25 I10 - Essential (primary) hypertension Influenza [id number] Immunization 09/30/25 Z23 - Encounter for immunization Medications: Refilled metoprolol succinate ER 50 mg PO DAILY 90 tabs 1RF
[2025-09-30 15:33] VITALS: BP 150/64; PULSE 72; O2SAT 97; BMI 28.5
[2025-09-30 16:02] VITALS: BP 130/80
== END 2025-09-30 16:15 | disposition home or self-care (01) ==
LOC: HO.HMCH 15:19
PROVIDERS: PCP Internal Medicine; Visit Provider Internal Medicine
DX: Z23 Encounter for immunization (principal)

== ENCOUNTER → 2025-09-30 15:19 | Outpatient (BNVA) | payer MEDICARE, SELFPAY | PROVIDERS: PCP Internal Medicine; Visit Provider Internal Medicine | DX: I10 Essential (primary) hypertension (principal); H53.8 Other visual disturbances; Z23 Encounter for immunization; Z79.899 Other long term (current) drug therapy; Z13.31 Encounter for screening for depression | CPT/HCPCS: 90471; 90656; 96127; 99212 ==